=== PATIENT | female | born 1975 | race Caucasian/White ===

== ENCOUNTER 2017-06-19 12:18 | Outpatient (CLI) | payer OTHER | END 2017-06-19 17:00 | disposition home or self-care (01) | LOC: RAD 501 12:18 | DX: M20.12 Hallux valgus (acquired), left foot (principal) ==

== ENCOUNTER 2024-01-03 09:17 | Outpatient (CLI) | payer OTHER | END 2024-01-03 09:18 | disposition home or self-care (01) | LOC: TOM 09:17 | DX: N83.01 Follicular cyst of right ovary (principal); N83.02 Follicular cyst of left ovary; R10.32 Left lower quadrant pain ==